=== PATIENT | male | born 1980 | race Two or more races ===

== ENCOUNTER 2024-04-15 08:55 | Emergency (ER) | payer SELFPAY ==
[2024-04-15] MEDS: Diphtheria,Pertussis(Acell),Tetanus Vaccine 0.5 ML Syringe IM ONE (10:58)
[2024-04-15] MEDS: Tetracaine HCl/PF 0.5% 4 ML Bottle EYELF ONE (11:00)
== END 2024-04-15 11:00 ==
LOC: CC.ED 08:55
DX: T15.02XA Foreign body in cornea, left eye, initial encounter (principal); Z23 Encounter for immunization; E11.9 Type 2 diabetes mellitus without complications; X58.XXXA Exposure to other specified factors, initial encounter
CPT/HCPCS: 65205; 90471; 90715; 99283; 99283-25